=== PATIENT | male | born 1980 | race Caucasian/White ===

== ENCOUNTER 2024-07-28 19:55 | Outpatient (CLI) | payer MEDICARE, BC, MEDICAID, SELFPAY | END 2024-07-28 19:56 | disposition home or self-care (01) | LOC: AMB 07-30 05:10 | PROVIDERS: Visit Provider Emergency Medicine | DX: R06.09 Other forms of dyspnea (principal); Z87.820 Personal history of traumatic brain injury | CPT/HCPCS: A0425; A0427 ==

== ENCOUNTER 2025-07-30 18:20 | Outpatient (CLI) | payer MEDICARE, BC, MEDICAID, SELFPAY | END 2025-07-30 18:21 | disposition home or self-care (01) | LOC: AMB 08-01 11:46 | PROVIDERS: Visit Provider Emergency Medicine | DX: R56.9 Unspecified convulsions (principal) | CPT/HCPCS: A0998 ==

== ENCOUNTER 2025-08-07 18:06 | Outpatient (CLI) | payer MEDICARE, BC, MEDICAID, SELFPAY | END 2025-08-07 18:07 | disposition home or self-care (01) | LOC: AMB 08-12 21:21 | PROVIDERS: Visit Provider Family Medicine | DX: R56.9 Unspecified convulsions (principal) | CPT/HCPCS: A0425; A0427 ==